=== PATIENT | female | born 1985 | race Caucasian/White ===

== ENCOUNTER 2017-05-18 23:51 | Inpatient (IN) | payer BC ==
[2017-05-19] MEDS ORDERED: Nalbuphine 10 MG/1 ML Vial IVPUSH PRN ×2 (00:01→21:52)
[2017-05-19] MEDS ORDERED: Sodium Chloride 0.9% 10 ML Syringe FLUSH PRN (00:01)
[2017-05-19] MEDS ORDERED: Tranexamic Acid 1,000 MG in Sodium Chloride 0.9% 100 ML IV PRN (00:01)
[2017-05-19] MEDS ORDERED: Carboprost Tromethamine 250 MCG/1 ML Amp IM PRN (00:01)
[2017-05-19] MEDS ORDERED: Lidocaine 1% 50 ML MDV INJECT PRN (00:01)
[2017-05-19] MEDS ORDERED: Sodium Chloride 0.9% 2.5 ML Syringe FLUSH PRN (00:01)
[2017-05-19] MEDS ORDERED: Water For Irrigation,Sterile 1,000 ML Container IRR PRN (00:01)
[2017-05-19] MEDS ORDERED: Methylergonovine 0.2 MG/1 ML Amp IM PRN (00:01)
[2017-05-19] MEDS ORDERED: Terbutaline 1 MG/ML SDV SUBCUT PRN (00:01)
[2017-05-19] MEDS ORDERED: Misoprostol 200 MCG Tab PO PRN (00:01)
[2017-05-19] MEDS ORDERED: hydrOXYzine Pamoate 25 MG Cap PO PRN (00:05)
[2017-05-19] MEDS ORDERED: Oxytocin/0.9 % Sodium Chloride 30 UNIT/500 ML BAG IV SCH ×2 (00:15→09:15)
[2017-05-19] MEDS ORDERED: Misoprostol 25 MCG (1/4 of 100 MCG) Tab VAG SCH (00:30)
[2017-05-19] MEDS ORDERED: Misoprostol 25 MCG (1/4 of 100 MCG) Tab PO SCH (00:30)
[2017-05-19] MEDS ORDERED: Misoprostol 25 MCG (1/4 of 100 MCG) Tab VAG PRN (04:30)
[2017-05-19] MEDS ORDERED: Misoprostol 25 MCG (1/4 of 100 MCG) Tab PO PRN (04:30)
--- NOTE | 2017-05-19 09:19 | PCM.LDHP ---
L&D History of Present Illness - General Date of Service: 05/19/17 Admit Problem/Dx: Patient Status Order with Admit Dx/Problem 05/19/17 00:01 Patient Status [ADT] Routine Admission Diagnosis/Problem Admission Diagnosis/Problem 05/19/17 09:19 31 yo EDC 05/26/2017 39 0/7wks O+, RI, GBS neg, IOL Source of Information: Patient History Limitations: Reports: No Limitations - History of Present Illness Improves with: Reports: None Worsens with: Reports: None Associated Symptoms: Reports: N - Related Data Allergies/Adverse Reactions: Allergies Allergy/AdvReac Type Severity Reaction Status Date / Time No Known Allergies Allergy Verified 05/19/17 00:01 Past Medical History - Past Health History Medical/Surgical History: Denies Medical/Surgical History Social & Family History - Family History Cardiac: Reports: Hypertension Endocrine/Metabolic: Reports: Diabetes, type II H&P Review of Systems - Review of Systems: Review Of Systems: See Below General: Reports: No Symptoms HEENT: Reports: No Symptoms Pulmonary: Reports: No Symptoms Cardiovascular: Reports: No Symptoms Gastrointestinal: Reports: No Symptoms Genitourinary: Reports: No Symptoms Musculoskeletal: Reports: No Symptoms Skin: Reports: No Symptoms Psychiatric: Reports: No Symptoms Neurological: Reports: No Symptoms Hematologic/Lymphatic: Reports: No Symptoms Immunologic: Reports: No Symptoms L&D Exam - Exam Exam: See Below - Vital Signs Weight: 125.645 kg - OB Specific Contraction Intensity: Mild Movement: Active Heart Tones: Present Heart Tones per Min: 140 Heart Rate (FHR) Variability: Moderate (6-25 bmp) Presentation: Vertex Estimated Weight: 3700 - German Score German Score Cervix Position: Anterior German Score Consistency: Soft German Score Effacement: 51-70% German Score Dilation: 3-4 cm German Score 's Station: -3 German Score Total: 8 - Exam General: Alert, Oriented, Cooperative HEENT: Hearing Intact Lungs: Clear to Auscultation, Normal Respiratory Effort Cardiovascular: Regular Rate, Regular Rhythm, Normal S1, Normal S2 GI/Abdominal Exam: Soft, Non-Tender Rectal Exam: Deferred Genitourinary: Normal external exam, Normal bimanual exam, Cervical dilitation Back Exam: Full Range of Motion Extremities: Normal Range of Motion, Non-Tender, No Pedal Edema, Normal Capillary Refill Skin: Warm, Dry, Intact Neurological: Reflexes Equal Bilateral, Normal Speech, Normal Tone Psychiatric: Alert, Normal Affect, Normal Mood - Patient Data Lab Results Last 24 hrs: Laboratory Results - last 24 hr 05/19/17 05/19/17 Range/Units 00:31 00:31 WBC 11.98 H (4.0-11.0) K/uL RBC 4.85 (4.30-5.90) M/uL Hgb 12.8 (12.0-16.0) g/dL Hct 38.8 (36.0-46.0) % MCV 80.0 (80.0-98.0) fL MCH 26.4 L (27.0-32.0) pg MCHC 33.0 (31.0-37.0) g/dL RDW Std Deviation 45.0 (28.0-62.0) fl RDW Coeff of Giana 16 H (11.0-15.0) % Plt Count 319 (150-400) K/uL MPV 10.20 (7.40-12.00) fL Nucleated RBC % 0.0 /100WBC Nucleated RBCs # 0 K/uL Blood Type O POSITIVE Antibody Screen NEGATIVE Result Diagrams: 05/19/17 00:31 - Problem List (1) Supervision of normal IUP (intrauterine ) in primigravida SNOMED Code(s): 60673520, 813845896, 473281789 ICD Code: Z34.00 - ENCNTR FOR SUPRVSN OF NORMAL FIRST , UNSP TRIMESTER Status: Acute Current Visit: Yes Qualifiers: Trimester: third trimester Qualified Code(s): Z34.03 - Encounter for supervision of normal first , third trimester Problem List Initiated/Reviewed/Updated: Yes Orders Last 24hrs: Active Orders 24 hr Category Date Time Status Patient Status [ADT] Routine ADT 05/19/17 00:01 Active Bedrest Bathroom Privileges [RC] ASDIRECTED Care 05/19/17 00:01 Active Communication Order [RC] ASDIRECTED Care 05/19/17 00:01 Active Communication Order [RC] ASDIRECTED Care 05/19/17 00:01 Active Communication Order [RC] ASDIRECTED Care 05/19/17 00:01 Active Heart Tones [RC] CONTINUOUS Care 05/19/17 00:01 Active Non Stress Test [RC] PER UNIT ROUTINE Care 05/19/17 00:01 Active May Shower [RC] ASDIRECTED Care 05/19/17 00:01 Active Notify Provider [RC] PRN Care 05/19/17 00:01 Active Notify Provider [RC] PRN Care 05/19/17 00:01 Active Notify Provider [RC] PRN Care 05/19/17 00:01 Active Notify Provider [RC] STAT Care 05/19/17 00:01 Active Oxygen Therapy [RC] ASDIRECTED Care 05/19/17 00:01 Active Up ad Mary [place] [RC] ASDIRECTED Care 05/19/17 00:01 Active Vaginal Exam [RC] PRN Care 05/19/17 00:01 Active Vaginal Exam [RC] PRN Care 05/19/17 00:01 Active Vital Signs [RC] PER UNIT ROUTINE Care 05/19/17 00:01 Active Vital Signs [RC] PER UNIT ROUTINE Care 05/19/17 00:01 Active Regular Diet [DIET] Diet 05/19/17 Breakfast Active Carboprost Tromethamine [Hemabate DS] Med 05/19/17 00:01 Active 250 mcg IM ASDIRECTED PRN Lactated Ringers [Ringers, Lactated] 1,000 ml Med 05/19/17 00:15 Active IV ASDIRECTED Lidocaine 1% [Xylocaine 1%] Med 05/19/17 00:01 Active 50 ml INJECT .ONCE PRN Methylergonovine [Methergine] Med 05/19/17 00:01 Active 0.2 mg IM ASDIRECTED PRN Misoprostol [Cytotec] Med 05/19/17 00:01 Active 200 mcg PO .ONCE PRN Misoprostol [Cytotec] Med 05/19/17 00:30 Active 25 mcg PO .ONCE Misoprostol [Cytotec] Med 05/19/17 04:30 Active 25 mcg PO Q4H PRN Misoprostol [Cytotec] Med 05/19/17 00:30 Active 25 mcg VAG .ONCE Misoprostol [Cytotec] Med 05/19/17 04:30 Active 25 mcg VAG Q4H PRN Nalbuphine [Nubain] Med 05/19/17 00:01 Active 10 mg IVPUSH Q1H PRN Oxytocin/0.9 % Sodium Chloride [Oxytocin 30 Unit/500 ML Med 05/19/17 00:15 Active -NS] 30 unit in 500 ml IV TITRATE Sodium Chloride 0.9% [Saline Flush] Med 05/19/17 00:01 Active 10 ml FLUSH ASDIRECTED PRN Sodium Chloride 0.9% [Saline Flush] Med 05/19/17 00:01 Active 2.5 ml FLUSH ASDIRECTED PRN Terbutaline [Brethine] Med 05/19/17 00:01 Active 0.25 mg SUBCUT ASDIRECTED PRN Tranexamic Acid [Cyklokapron] 1,000 mg Med 05/19/17 00:01 Active Sodium Chloride 0.9% [Normal Saline] 100 ml IV ONETIME Water For Irrigation,Sterile [Sterile Water for Med 05/19/17 00:01 Active Irrigation] 1,000 ml IRR ASDIRECTED PRN hydrOXYzine Pamoate [Vistaril] Med 05/19/17 00:05 Active 50 mg PO BEDTIME PRN Scalp Electrode [WOMSER] Per Unit Routine Oth 05/19/17 00:01 Ordered Medication Administration Instruction [OM.PC] Q3H Oth 05/19/17 00:15 Ordered Peripheral IV Insertion Adult [OM.PC] Routine Oth 05/19/17 00:01 Ordered Resuscitation Status Routine Resus Stat 05/19/17 00:01 Ordered Medication Orders Carboprost Tromethamine (Hemabate Ds) 250 mcg IM ASDIRECTED PRN PRN Reason: Post Hemorrhage Hydroxyzine Pamoate (Vistaril) 50 mg PO BEDTIME PRN PRN Reason: Sleep Lactated Ringer's (Ringers, Lactated) 1,000 mls @ 150 mls/hr IV ASDIRECTED FAITH Oxytocin/Sodium Chloride (Oxytocin 30 Unit/500 Ml-Ns) 30 unit in 500 mls @ 999 mls/hr IV TITRATE FAITH Tranexamic Acid 1,000 mg/ (Sodium Chloride) 110 mls @ 660 mls/hr IV ONETIME PRN PRN Reason: Bleeding Lidocaine HCl (Xylocaine 1%) 50 ml INJECT .ONCE PRN PRN Reason: Laceration repair Methylergonovine Maleate (Methergine) 0.2 mg IM ASDIRECTED PRN PRN Reason: Post Hemorrhage Misoprostol (Cytotec) 200 mcg PO .ONCE PRN PRN Reason: Post Hemorrhage Misoprostol (Cytotec) 25 mcg VAG .ONCE FAITH Last Admin: 05/19/17 00:36 Dose: 25 mcg Misoprostol (Cytotec) 25 mcg VAG Q4H PRN PRN Reason: Cervical Ripening Last Admin: 05/19/17 04:58 Dose: 25 mcg Misoprostol (Cytotec) 25 mcg PO Q4H PRN PRN Reason: Cervical Ripening Last Admin: 05/19/17 04:58 Dose: 25 mcg Misoprostol (Cytotec) 25 mcg PO .ONCE FAITH Last Admin: 05/19/17 00:37 Dose: 25 mcg Nalbuphine HCl (Nubain) 10 mg IVPUSH Q1H PRN PRN Reason: Pain (severe 7-10) Sodium Chloride (Saline Flush) 10 ml FLUSH ASDIRECTED PRN PRN Reason: Keep Vein Open Sodium Chloride (Saline Flush) 2.5 ml FLUSH ASDIRECTED PRN PRN Reason: Keep Vein Open Sterile Water (Sterile Water For Irrigation) 1,000 ml IRR ASDIRECTED PRN PRN Reason: delivery Terbutaline Sulfate (Brethine) 0.25 mg SUBCUT ASDIRECTED PRN PRN Reason: Tacysystole Assessment/Plan Comment:: IOL A: 31 yo EDC 05/26/2017 39 0/7wks O+, RI, GBS neg, IOL P: Admit, cytotec to pitocin induction, GBS neg. Anticipate . Dr Bergman updated
[2017-05-19] MEDS: Lactated Ringers 1,000 ML IV SCH ×4 (09:36→17:18)
--- NOTE | 2017-05-19 10:37 | PCM.PREANE ---
Preanesthetic Assessment - Procedure Proposed Procedure: Term labor; primiparous - Anesthesia/Transfusion/Family Hx Anesthesia History: No Prior Anesthesia Family History of Anesthesia Reaction: No - Review of Systems General: Other (in labor) Pulmonary: No Symptoms Cardiovascular: No Symptoms Gastrointestinal: Other (GERD of ) Neurological: No Symptoms Other: Reports: Anxiety - Physical Assessment NPO Status Date: 05/19/17 NPO Status Time: 06:00 Height: 5 ft 9 in Weight: 277 lb ASA Class: 2 Mental Status: Alert & Oriented x3 Airway Class: Mallampati = 2 Dentition: Reports: Normal Dentition Thyro-Mental Finger Breadths: 3 Mouth Opening Finger Breadths: 3 (narrow palate) ROM/Head Extension: Full Lungs: Clear to Auscultation, Normal Respiratory Effort Cardiovascular: Regular Rate, No Murmurs - Lab Values: Laboratory Last Values WBC 11.98 K/uL (4.0-11.0) H 05/19/17 00:31 RBC 4.85 M/uL (4.30-5.90) 05/19/17 00:31 Hgb 12.8 g/dL (12.0-16.0) 05/19/17 00:31 Hct 38.8 % (36.0-46.0) 05/19/17 00:31 MCV 80.0 fL (80.0-98.0) 05/19/17 00:31 MCH 26.4 pg (27.0-32.0) L 05/19/17 00:31 MCHC 33.0 g/dL (31.0-37.0) 05/19/17 00:31 RDW Std Deviation 45.0 fl (28.0-62.0) 05/19/17 00:31 RDW Coeff of Giana 16 % (11.0-15.0) H 05/19/17 00:31 Plt Count 319 K/uL (150-400) 05/19/17 00:31 MPV 10.20 fL (7.40-12.00) 05/19/17 00:31 Nucleated RBC % 0.0 /100WBC 05/19/17 00:31 Nucleated RBCs # 0 K/uL 05/19/17 00:31 Blood Type O POSITIVE 05/19/17 00:31 Antibody Screen NEGATIVE 05/19/17 00:31 - Allergies Allergies/Adverse Reactions: Allergies Allergy/AdvReac Type Severity Reaction Status Date / Time No Known Allergies Allergy Verified 05/19/17 00:01 - Blood Blood Available: No Product(s) Available: None (T and S) - Anesthesia Plan Pre-Op Medication Ordered: None - Acknowledgements Anesthesia Type Planned: Epidural Pt an Appropriate Candidate for the Planned Anesthesia: Yes Alternatives and Risks of Anesthesia Discussed w Pt/Guardian: Yes Pt/Guardian Understands and Agrees with Anesthesia Plan: Yes Additional Comments: present for placement and interview PreAnesthesia Questionnaire - Past Health History Medical/Surgical History: Denies Medical/Surgical History - CURRENT (IN HOUSE) MEDS Current Meds: Current Medications Carboprost Tromethamine (Hemabate Ds) 250 mcg IM ASDIRECTED PRN PRN Reason: Post Hemorrhage Hydroxyzine Pamoate (Vistaril) 50 mg PO BEDTIME PRN PRN Reason: Sleep Lactated Ringer's (Ringers, Lactated) 1,000 mls @ 150 mls/hr IV ASDIRECTED FAITH Last Admin: 05/19/17 09:36 Dose: 150 mls/hr Oxytocin/Sodium Chloride (Oxytocin 30 Unit/500 Ml-Ns) 30 unit in 500 mls @ 999 mls/hr IV TITRATE FAITH Tranexamic Acid 1,000 mg/ (Sodium Chloride) 110 mls @ 660 mls/hr IV ONETIME PRN PRN Reason: Bleeding Oxytocin/Sodium Chloride (Oxytocin 30 Unit/500 Ml-Ns) 30 unit in 500 mls @ 2 mls/hr IV TITRATE FAITH; 2 MUNITS/MIN PRN Reason: Protocol Last Titration: 05/19/17 10:03 Dose: 4 munits/min, 4 mls/hr Lidocaine HCl (Xylocaine 1%) 50 ml INJECT .ONCE PRN PRN Reason: Laceration repair Methylergonovine Maleate (Methergine) 0.2 mg IM ASDIRECTED PRN PRN Reason: Post Hemorrhage Misoprostol (Cytotec) 200 mcg PO .ONCE PRN PRN Reason: Post Hemorrhage Misoprostol (Cytotec) 25 mcg VAG .ONCE FAITH Last Admin: 05/19/17 00:36 Dose: 25 mcg Misoprostol (Cytotec) 25 mcg VAG Q4H PRN PRN Reason: Cervical Ripening Last Admin: 05/19/17 04:58 Dose: 25 mcg Misoprostol (Cytotec) 25 mcg PO Q4H PRN PRN Reason: Cervical Ripening Last Admin: 05/19/17 04:58 Dose: 25 mcg Misoprostol (Cytotec) 25 mcg PO .ONCE FAITH Last Admin: 05/19/17 00:37 Dose: 25 mcg Nalbuphine HCl (Nubain) 10 mg IVPUSH Q1H PRN PRN Reason: Pain (severe 7-10) Sodium Chloride (Saline Flush) 10 ml FLUSH ASDIRECTED PRN PRN Reason: Keep Vein Open Sodium Chloride (Saline Flush) 2.5 ml FLUSH ASDIRECTED PRN PRN Reason: Keep Vein Open Sterile Water (Sterile Water For Irrigation) 1,000 ml IRR ASDIRECTED PRN PRN Reason: delivery Terbutaline Sulfate (Brethine) 0.25 mg SUBCUT ASDIRECTED PRN PRN Reason: Tacysystole
[2017-05-19] MEDS ORDERED: fentaNYL 100 MCG/2 ML SDV ONE ×3 (12:46→21:15)
[2017-05-19] MEDS ORDERED: Bupivacaine 0.5% 10 ML SDV ONE (20:31)
[2017-05-19] MEDS ORDERED: ceFAZolin/Dextrose,Iso-Osmotic 2 GM/50 ML Duplex Bag IV ONE (20:31)
[2017-05-19] MEDS ORDERED: Ondansetron 4 MG/2 ML SDV ONE (20:46)
[2017-05-19] MEDS ORDERED: Morphine PF 1 MG/ML Amp ONE (20:46)
[2017-05-19] MEDS ORDERED: Oxytocin 10 Units/1 ML SDV ONE (20:52)
[2017-05-19] MEDS ORDERED: Propofol 200 MG/20 ML SDV ONE (20:59)
[2017-05-19] MEDS ORDERED: Midazolam 1 MG/ML 2 ML SDV ONE (20:59)
[2017-05-19] MEDS ORDERED: Octyl 2-Cyanoacrylate 1 Tube ONE (21:31)
[2017-05-19] MEDS ORDERED: diphenhydrAMINE 50 MG/ML SDV IVPUSH PRN ×2 (21:32→21:52)
[2017-05-19] MEDS ORDERED: Acetaminophen/oxyCODONE 325-5 MG Tab PO PRN ×2 (21:32)
[2017-05-19] MEDS ORDERED: Ondansetron 4 MG/2 ML SDV IVPUSH PRN (21:32)
[2017-05-19] MEDS ORDERED: Bisacodyl 10 MG Supp RECTAL PRN (21:32)
[2017-05-19] MEDS ORDERED: Lanolin 100% Cream 7 GM Tube TOP PRN (21:32)
--- NOTE | 2017-05-19 21:37 | PCM.OPNOTE ---
- General Post-Op/Procedure Note Date of Surgery/Procedure: 05/19/17 Operative Procedure(s): Primary IUP 39 weeks failure to progress Pre Op Diagnosis: IUP 39 weeks failure to progress Post-Op Diagnosis: Same Anesthesia Technique: Epidural Primary Surgeon: Jack Bergman Skin Lap Bonder: Sabrina Baptiste EBL in mLs: 700 Complications: None Condition: Good
[2017-05-19] MEDS ORDERED: Lactated Ringers 1,000 ML IV SCH (21:45)
[2017-05-19] MEDS ORDERED: Naloxone 0.4 MG/ML Syringe IVPUSH PRN (21:52)
--- NOTE | 2017-05-19 23:54 | PCM.POSTAN ---
POST ANESTHESIA ASSESSMENT - MENTAL STATUS Mental Status: Alert, Oriented - RESPIRATORY Respiratory Status: Respiratory Rate WNL, Airway Patent, O2 Saturation Stable - CARDIOVASCULAR CV Status: Pulse Rate WNL, Blood Pressure Stable - GASTROINTESTINAL GI Status: No Symptoms - PAIN Pain Score: 1 - POST OP HYDRATION Hydration Status: Adequate & Stable
[2017-05-20] MEDS: Ketorolac 30 MG/ML SDV IVPUSH SCH ×4 (00:19→20:00)
--- NOTE | 2017-05-20 02:07 | OR ---
SURGEON: Jack Bergman MD DATE OF PROCEDURE: 05/19/2017 PREOPERATIVE DIAGNOSES: Intrauterine 39 weeks plus, failed induction, failure to progress and non-reassuring heart rate. POSTOPERATIVE DIAGNOSES: Intrauterine 39 weeks plus, failed induction, failure to progress and non-reassuring heart rate. OPERATION PERFORMED: Primary low transverse section. DURALUMIN METALWORKER: Sabrina Baptiste CNM ANESTHESIA: Epidural, Akshat Heaton and Farhan Brown M.D. ESTIMATED BLOOD LOSS: 700 mL. THERMO PROCESSOR: Dr. Zelaya. COMPLICATIONS: None. INDICATION FOR SURGERY: This patient is a 31-year-old. She is primigravida. She is 39 plus weeks. She is followed in our clinic primarily by our nurse lacquer machine feeder. She is admitted for elective induction. The patient has initially responded to Cytotec and Pitocin. She progressed to 5 cm. She had artificial rupture of the membrane, and it was a meconium-tinged fluid. The patient started having repeat variable deceleration with a late component with every contraction, and when the Pitocin is stopped, these variable contractions are resolved. However, her contractions stopped. Reattempt to start the Pitocin, the same things happened. The patient is remote from delivery. A decision is done to do a primary low transverse section. PROCEDURE IN DETAIL: The patient was brought to the OR, properly identified. After adequate level of epidural anesthesia, the patient was prepped and draped in sterile fashion as usual. Low transverse Pfannenstiel skin incision done. Pérez fascia and rectus fascia were opened in direction of the incision. The 2 recti muscles were , and peritoneal cavity was entered. Bladder flap was raised in the usual manner pushing the bladder away from the lower uterine segment. Low transverse uterine incision extended manually, and fetus was in a vertex position, delivered without any problem, and handed to the certified wellness program coordinator who was present at the time of the section for resuscitation. The score reported to be 8 and 9. The weight was not available. The placenta delivered spontaneous, complete, and intact, and repair of the lower uterine segment was done with 2-0 Vicryl continuous interlocking in 2 layers. Reperitonealization done with 3-0 Vicryl continuous and then the peritoneal cavity evacuated completely from all blood and blood clot and closed with 3-0 Vicryl continuous. The rectus fascia was closed with #1 PDS double strand continuous. Pérez fascia was closed with 3-0 Vicryl continuous. The skin closed with 3-0 on a Talha needle in a subcuticular fashion. Prior to closing the superficial fascia, a Jg-Beard is placed in place and anchored to the skin with 3-0 Vicryl for drainage. Instrument and sponge count were correct. The patient tolerated the procedure well, went to recovery room in stable general condition. DAVID / SARAH /[id number]
--- NOTE | 2017-05-20 10:16 | PCM.SURGPN ---
- General Info Date of Service: 05/20/17 POD#: 1 Functional Status: Reports: Pain Controlled - Review of Systems General: Reports: No Symptoms HEENT: Reports: No Symptoms Pulmonary: Reports: No Symptoms Cardiovascular: Reports: No Symptoms Gastrointestinal: Reports: No Symptoms Genitourinary: Reports: No Symptoms Musculoskeletal: Reports: No Symptoms Skin: Reports: No Symptoms Neurological: Reports: No Symptoms Psychiatric: Reports: No Symptoms - Patient Data Vitals - Most Recent: Last Vital Signs Temp 36.4 C 05/20/17 04:00 Pulse 79 05/20/17 04:00 Resp 18 05/20/17 07:00 BP 111/76 05/20/17 04:00 Pulse Ox 94 L 05/20/17 07:00 Weight - Most Recent: 125.645 kg I&O - Last 24 Hours: Intake & Output 05/19/17 05/20/17 05/20/17 22:59 06:59 14:59 Intake Total 2000 Output Total 230 520 Balance 1770 -520 Lab Results Last 24 Hrs: Laboratory Results - last 24 hr 05/20/17 Range/Units 05:22 Hgb 11.0 L (12.0-16.0) g/dL Hct 33.8 L (36.0-46.0) % Med Orders - Current: Current Medications Bisacodyl (Dulcolax) 10 mg RECTAL .ONCE PRN PRN Reason: Constipation Carboprost Tromethamine (Hemabate Ds) 250 mcg IM ASDIRECTED PRN PRN Reason: Post Hemorrhage Diphenhydramine HCl (Benadryl) 25 mg IVPUSH Q6H PRN PRN Reason: Itching or Nausea Diphenhydramine HCl (Benadryl) 25 mg IVPUSH Q4H PRN PRN Reason: Itching Stop: 05/20/17 21:52 Docusate Sodium (Colace) 100 mg PO BID [facility] Emollient Ointment (Lansinoh Hpa) 0 gm TOP ASDIRECTED PRN PRN Reason: Sore Nipples Hydroxyzine Pamoate (Vistaril) 50 mg PO BEDTIME PRN PRN Reason: Sleep Lactated Ringer's (Ringers, Lactated) 1,000 mls @ 150 mls/hr IV ASDIRECTED [facility] Last Admin: 05/19/17 17:18 Dose: 150 mls/hr Oxytocin/Sodium Chloride (Oxytocin 30 Unit/500 Ml-Ns) 30 unit in 500 mls @ 999 mls/hr IV TITRATE [facility] Tranexamic Acid 1,000 mg/ (Sodium Chloride) 110 mls @ 660 mls/hr IV ONETIME PRN PRN Reason: Bleeding Oxytocin/Sodium Chloride (Oxytocin 30 Unit/500 Ml-Ns) 30 unit in 500 mls @ 2 mls/hr IV TITRATE [facility]; 2 MUNITS/MIN PRN Reason: Protocol Last Titration: 05/19/17 20:07 Dose: 0 munits/min, 0 mls/hr Lactated Ringer's (Ringers, Lactated) 1,000 mls @ 125 mls/hr IV ASDIRECTED [facility] Last Admin: 05/19/17 22:24 Dose: 125 mls/hr Ibuprofen (Motrin) 800 mg PO Q8H PRN PRN Reason: mild pain or fever Ketorolac Tromethamine (Toradol) 30 mg IVPUSH Q6H [facility] Stop: 05/21/17 00:01 Lidocaine HCl (Xylocaine 1%) 50 ml INJECT .ONCE PRN PRN Reason: Laceration repair Methylergonovine Maleate (Methergine) 0.2 mg IM ASDIRECTED PRN PRN Reason: Post Hemorrhage Misoprostol (Cytotec) 200 mcg PO .ONCE PRN PRN Reason: Post Hemorrhage Misoprostol (Cytotec) 25 mcg VAG .ONCE [facility] Last Admin: 05/19/17 00:36 Dose: 25 mcg Misoprostol (Cytotec) 25 mcg VAG Q4H PRN PRN Reason: Cervical Ripening Last Admin: 05/19/17 04:58 Dose: 25 mcg Misoprostol (Cytotec) 25 mcg PO Q4H PRN PRN Reason: Cervical Ripening Last Admin: 05/19/17 04:58 Dose: 25 mcg Misoprostol (Cytotec) 25 mcg PO .ONCE [facility] Last Admin: 05/19/17 00:37 Dose: 25 mcg Nalbuphine HCl (Nubain) 10 mg IVPUSH Q1H PRN PRN Reason: Pain (severe 7-10) Nalbuphine HCl (Nubain) 5 mg IVPUSH Q3H PRN PRN Reason: Pruritis Stop: 05/20/17 21:52 Naloxone HCl (Narcan) 0.1 mg IVPUSH ONETIME PRN PRN Reason: Respiratory Depression Stop: 05/20/17 21:53 Ondansetron HCl (Zofran) 4 mg IVPUSH Q4H PRN PRN Reason: Nausea/Vomiting Oxycodone/Acetaminophen (Percocet 325-5 Mg) 1 tab PO Q4H PRN PRN Reason: Pain (moderate 4-6) Oxycodone/Acetaminophen (Percocet 325-5 Mg) 2 tab PO Q4H PRN PRN Reason: Pain (moderate 4-6) Sodium Chloride (Saline Flush) 10 ml FLUSH ASDIRECTED PRN PRN Reason: Keep Vein Open Sodium Chloride (Saline Flush) 2.5 ml FLUSH ASDIRECTED PRN PRN Reason: Keep Vein Open Sterile Water (Sterile Water For Irrigation) 1,000 ml IRR ASDIRECTED PRN PRN Reason: delivery Terbutaline Sulfate (Brethine) 0.25 mg SUBCUT ASDIRECTED PRN PRN Reason: Tacysystole Discontinued Medications Bupivacaine HCl (Sensorcaine-Mpf 0.5%) Confirm Administered Dose 20 ml .ROUTE .STK-MED ONE Stop: 05/19/17 20:32 Cefazolin Sodium/Dextrose (Ancef) Confirm Administered Dose 2 gm IV .STK-MED ONE Stop: 05/19/17 20:32 Fentanyl (Sublimaze) Confirm Administered Dose 100 mcg .ROUTE .STK-MED ONE Stop: 05/19/17 12:47 Fentanyl (Sublimaze) Confirm Administered Dose 100 mcg .ROUTE .STK-MED ONE Stop: 05/19/17 21:00 Fentanyl (Sublimaze) Confirm Administered Dose 100 mcg .ROUTE .STK-MED ONE Stop: 05/19/17 21:16 Fentanyl/Bupivacaine HCl (Xbrukmjr-Drryd-Fg 2 Mcg/Ml-0.125%) Confirm Administered Dose 100 mls @ as directed EP .STK-MED ONE Stop: 05/19/17 11:18 Fentanyl/Bupivacaine HCl (Gmbfygrr-Upofw-Pd 2 Mcg/Ml-0.125%) Confirm Administered Dose 100 mls @ as directed EP .STK-MED ONE Stop: 05/19/17 17:59 Ketorolac Tromethamine (Toradol) 30 mg IVPUSH Q6H [facility] Stop: 05/20/17 22:01 Last Admin: 05/20/17 07:49 Dose: 30 mg Midazolam HCl (Versed 1 Mg/Ml) Confirm Administered Dose 2 mg .ROUTE .STK-MED ONE Stop: 05/19/17 21:00 Morphine Sulfate (Duramorph Pf) Confirm Administered Dose 1 mg .ROUTE .STK-MED ONE Stop: 05/19/17 20:47 Octyl Cyanoacrylate (Dermabond Advance) Confirm Administered Dose 1 applic .ROUTE .STK-MED ONE Stop: 05/19/17 21:32 Ondansetron HCl (Zofran) Confirm Administered Dose 4 mg .ROUTE .STK-MED ONE Stop: 05/19/17 20:47 Oxytocin (Pitocin) Confirm Administered Dose 20 unit .ROUTE .STK-MED ONE Stop: 05/19/17 20:53 Propofol (Diprivan 20 Ml) Confirm Administered Dose 200 mg .ROUTE .STK-MED ONE Stop: 05/19/17 21:00 - Exam Wound/Incisions: Healing Well General: Alert, Oriented HEENT: Pupils Equal Neck: Supple Lungs: Clear to Auscultation, Normal Respiratory Effort Cardiovascular: Regular Rate, Regular Rhythm GI/Abdominal Exam: Normal Bowel Sounds, Soft, Non-Tender, No Organomegaly, No Distention, No Abnormal Bruit, No Mass, Pelvis Stable Extremities: Normal Inspection, Normal Range of Motion, Non-Tender, No Pedal Edema, Normal Capillary Refill Skin: Warm, Dry, Intact Neurological: No New Focal Deficit Psy/Mental Status: Alert, Normal Affect, Normal Mood - Problem List Review Problem List Initiated/Reviewed/Updated: Yes - My Orders Last 24 Hours: Active Orders 24 hr Category Date Time Status Patient Status [ADT] Routine ADT 05/19/17 21:33 Active Ambulate [RC] PER UNIT ROUTINE Care 05/19/17 21:33 Active Antiembolic Devices [RC] PER UNIT ROUTINE Care 05/19/17 21:33 Active Bradycardia-Neuroaxis [employer] [RC] ROUTINE Care 05/19/17 21:52 Active Communication Order [RC] PER UNIT ROUTINE Care 05/19/17 21:33 Active Communication Order [RC] PER UNIT ROUTINE Care 05/19/17 21:33 Active Communication Order [RC] Per Unit Routine Care 05/19/17 21:33 Active Hypertension-Neuroaxis [employer] [RC] ROUTINE Care 05/19/17 21:52 Active Hypotension-Neuroaxis [employer] [RC] ROUTINE Care 05/19/17 21:52 Active May Shower [RC] ASDIRECTED Care 05/19/17 21:33 Active Oxygen Therapy [RC] PER UNIT ROUTINE Care 05/19/17 21:52 Active RT Incentive Spirometry [RC] Q2HWA Care 05/19/17 21:33 Active Vital Signs [RC] PER UNIT ROUTINE Care 05/19/17 21:33 Active Vital Signs [RC] Q1H Care 05/19/17 21:52 Active Acetaminophen/oxyCODONE [Percocet 325-5 MG] Med 05/19/17 21:32 Active 1 tab PO Q4H PRN Acetaminophen/oxyCODONE [Percocet 325-5 MG] Med 05/19/17 21:32 Active 2 tab PO Q4H PRN Bisacodyl [Dulcolax] Med 05/19/17 21:32 Active 10 mg RECTAL .ONCE PRN Docusate Sodium [Colace] Med 05/20/17 09:00 Active 100 mg PO BID Ibuprofen [Motrin] Med 05/21/17 06:00 Active 800 mg PO Q8H PRN Ketorolac [Toradol] Med 05/20/17 12:00 Active 30 mg IVPUSH Q6H Lactated Ringers [Ringers, Lactated] 1,000 ml Med 05/19/17 21:45 Active IV ASDIRECTED Lanolin [Lansinoh HPA] Med 05/19/17 21:32 Active See Dose Instructions TOP ASDIRECTED PRN Nalbuphine [Nubain] Med 05/19/17 21:52 Active 5 mg IVPUSH Q3H PRN Naloxone [Narcan] Med 05/19/17 21:52 Active 0.1 mg IVPUSH ONETIME PRN Ondansetron [Zofran] Med 05/19/17 21:32 Active 4 mg IVPUSH Q4H PRN diphenhydrAMINE [Benadryl] Med 05/19/17 21:52 Active 25 mg IVPUSH Q4H PRN diphenhydrAMINE [Benadryl] Med 05/19/17 21:32 Active 25 mg IVPUSH Q6H PRN AN Neuroaxis [employer] Precaution Reflex [OM.PC] PER Oth 05/19/17 22:00 Ordered UNIT ROUTINE AN Neuroaxis [employer] Precaution Reflex [OM.PC] PER Oth 05/20/17 22:00 Ordered UNIT ROUTINE Assess Lochia [WOMSER] Per Unit Routine Oth 05/19/17 21:33 Ordered Assess Uterine Involution [WOMSER] Per Unit Routine Oth 05/19/17 21:33 Ordered Breast Pump [WOMSER] Per Unit Routine Ot 05/19/17 21:33 Ordered Peripheral IV Discontinue [OM.PC] Routine Ot 05/19/17 21:33 Ordered Sequential Compression Device [OM.PC] Per Unit Routine Ot 05/19/17 21:33 Ordered Medication Orders Bisacodyl (Dulcolax) 10 mg RECTAL .ONCE PRN PRN Reason: Constipation Carboprost Tromethamine (Hemabate Ds) 250 mcg IM ASDIRECTED PRN PRN Reason: Post Hemorrhage Diphenhydramine HCl (Benadryl) 25 mg IVPUSH Q6H PRN PRN Reason: Itching or Nausea Diphenhydramine HCl (Benadryl) 25 mg IVPUSH Q4H PRN PRN Reason: Itching Stop: 05/20/17 21:52 Docusate Sodium (Colace) 100 mg PO BID [facility] Emollient Ointment (Lansinoh Hpa) 0 gm TOP ASDIRECTED PRN PRN Reason: Sore Nipples Hydroxyzine Pamoate (Vistaril) 50 mg PO BEDTIME PRN PRN Reason: Sleep Lactated Ringer's (Ringers, Lactated) 1,000 mls @ 150 mls/hr IV ASDIRECTED [facility] Last Admin: 05/19/17 17:18 Dose: 150 mls/hr Infusion: 05/19/17 17:18 Dose: 150 mls/hr Admin: 05/19/17 13:15 Dose: 150 mls/hr Infusion: 05/19/17 13:15 Dose: 150 mls/hr Admin: 05/19/17 11:10 Dose: 150 mls/hr Infusion: 05/19/17 11:10 Dose: 150 mls/hr Admin: 05/19/17 09:36 Dose: 150 mls/hr Oxytocin/Sodium Chloride (Oxytocin 30 Unit/500 Ml-Ns) 30 unit in 500 mls @ 999 mls/hr IV TITRATE [facility] Tranexamic Acid 1,000 mg/ (Sodium Chloride) 110 mls @ 660 mls/hr IV ONETIME PRN PRN Reason: Bleeding Oxytocin/Sodium Chloride (Oxytocin 30 Unit/500 Ml-Ns) 30 unit in 500 mls @ 2 mls/hr IV TITRATE [facility]; 2 MUNITS/MIN PRN Reason: Protocol Last Titration: 05/19/17 20:07 Dose: 0 munits/min, 0 mls/hr Titration: 05/19/17 19:33 Dose: 8 munits/min, 8 mls/hr Titration: 05/19/17 19:08 Dose: 6 munits/min, 6 mls/hr Titration: 05/19/17 18:26 Dose: 4 munits/min, 4 mls/hr Titration: 05/19/17 18:05 Dose: 2 munits/min, 2 mls/hr Titration: 05/19/17 17:16 Dose: 0 munits/min, 0 mls/hr Titration: 05/19/17 16:00 Dose: 8 munits/min, 8 mls/hr Titration: 05/19/17 11:17 Dose: 6 munits/min, 6 mls/hr Titration: 05/19/17 10:03 Dose: 4 munits/min, 4 mls/hr Admin: 05/19/17 09:35 Dose: 2 munits/min, 2 mls/hr Lactated Ringer's (Ringers, Lactated) 1,000 mls @ 125 mls/hr IV ASDIRECTED [facility] Last Admin: 05/19/17 22:24 Dose: 125 mls/hr Ibuprofen (Motrin) 800 mg PO Q8H PRN PRN Reason: mild pain or fever Ketorolac Tromethamine (Toradol) 30 mg IVPUSH Q6H [facility] Stop: 05/21/17 00:01 Lidocaine HCl (Xylocaine 1%) 50 ml INJECT .ONCE PRN PRN Reason: Laceration repair Methylergonovine Maleate (Methergine) 0.2 mg IM ASDIRECTED PRN PRN Reason: Post Hemorrhage Misoprostol (Cytotec) 200 mcg PO .ONCE PRN PRN Reason: Post Hemorrhage Misoprostol (Cytotec) 25 mcg VAG .ONCE [facility] Last Admin: 05/19/17 00:36 Dose: 25 mcg Misoprostol (Cytotec) 25 mcg VAG Q4H PRN PRN Reason: Cervical Ripening Last Admin: 05/19/17 04:58 Dose: 25 mcg Misoprostol (Cytotec) 25 mcg PO Q4H PRN PRN Reason: Cervical Ripening Last Admin: 05/19/17 04:58 Dose: 25 mcg Misoprostol (Cytotec) 25 mcg PO .ONCE [facility] Last Admin: 05/19/17 00:37 Dose: 25 mcg Nalbuphine HCl (Nubain) 10 mg IVPUSH Q1H PRN PRN Reason: Pain (severe 7-10) Nalbuphine HCl (Nubain) 5 mg IVPUSH Q3H PRN PRN Reason: Pruritis Stop: 05/20/17 21:52 Naloxone HCl (Narcan) 0.1 mg IVPUSH ONETIME PRN PRN Reason: Respiratory Depression Stop: 05/20/17 21:53 Ondansetron HCl (Zofran) 4 mg IVPUSH Q4H PRN PRN Reason: Nausea/Vomiting Oxycodone/Acetaminophen (Percocet 325-5 Mg) 1 tab PO Q4H PRN PRN Reason: Pain (moderate 4-6) Oxycodone/Acetaminophen (Percocet 325-5 Mg) 2 tab PO Q4H PRN PRN Reason: Pain (moderate 4-6) Sodium Chloride (Saline Flush) 10 ml FLUSH ASDIRECTED PRN PRN Reason: Keep Vein Open Sodium Chloride (Saline Flush) 2.5 ml FLUSH ASDIRECTED PRN PRN Reason: Keep Vein Open Sterile Water (Sterile Water For Irrigation) 1,000 ml IRR ASDIRECTED PRN PRN Reason: delivery Terbutaline Sulfate (Brethine) 0.25 mg SUBCUT ASDIRECTED PRN PRN Reason: Tacysystole - Assessment Assessment (Free Text/Narrative):: Status post section postoperative day #1 patient vitals signs stable incision is okay JVD drainage is moderate. Patient on regular diet - Plan Plan (Free Text/Narrative):: Regular and post section care
--- NOTE | 2017-05-20 11:31 | PCM48HPAN ---
Post Anesthesia Note - EVALUATION WITHIN 48HRS OF ANESTHETIC Vital Signs in Normal Range: Yes Patient Participated in Evaluation: Yes Respiratory Function Stable: Yes Airway Patent: Yes Cardiovascular Function Stable: Yes Hydration Status Stable: Yes Pain Control Satisfactory: Yes Nausea and Vomiting Control Satisfactory: Yes Mental Status Recovered: Yes Resp Rate: 18 - COMMENTS/OBSERVATIONS Free Text/Narrative:: Baby at bedside. Stable condition.
[2017-05-20] MEDS: Docusate Sodium 100 MG Cap PO SCH ×2 (11:40→20:00)
[2017-05-20] MEDS ORDERED: Acetaminophen/oxyCODONE 325-5 MG Tab PO PRN (17:31)
[2017-05-21] MEDS ORDERED: Ketorolac 30 MG/ML SDV ONE (02:24)
[2017-05-21] MEDS: Ketorolac 30 MG/ML SDV IVPUSH SCH (02:28)
[2017-05-21] MEDS ORDERED: Ibuprofen 800 MG Tab PO PRN (06:00)
[2017-05-21] MEDS: Docusate Sodium 100 MG Cap PO SCH ×2 (07:46→09:45)
--- NOTE | 2017-05-21 08:58 | PCM.PNPP ---
- General Info Date of Service: 05/21/17 Functional Status: Reports: Pain Controlled - Review of Systems General: Reports: No Symptoms HEENT: Reports: No Symptoms Pulmonary: Reports: No Symptoms Cardiovascular: Reports: No Symptoms Gastrointestinal: Reports: No Symptoms Genitourinary: Reports: No Symptoms Musculoskeletal: Reports: No Symptoms Skin: Reports: No Symptoms Neurological: Reports: No Symptoms Psychiatric: Reports: No Symptoms - General Info Date of Service: 05/21/17 - Patient Data Vital Signs - Most Recent: Last Vital Signs Temp 36.4 C 05/21/17 05:00 Pulse 100 05/21/17 05:00 Resp 18 05/21/17 05:00 BP 112/84 05/21/17 05:00 Pulse Ox 93 L 05/21/17 00:00 Weight - Most Recent: 125.645 kg I&O - Last 24 Hours: Intake & Output 05/20/17 05/21/17 05/21/17 22:59 06:59 14:59 Intake Total 500 Output Total 490 670 Balance -490 -170 Med Orders - Current: Current Medications Bisacodyl (Dulcolax) 10 mg RECTAL .ONCE PRN PRN Reason: Constipation Carboprost Tromethamine (Hemabate Ds) 250 mcg IM ASDIRECTED PRN PRN Reason: Post Hemorrhage Diphenhydramine HCl (Benadryl) 25 mg IVPUSH Q6H PRN PRN Reason: Itching or Nausea Docusate Sodium (Colace) 100 mg PO BID [facility] Last Admin: 05/21/17 07:46 Dose: 100 mg Emollient Ointment (Lansinoh Hpa) 0 gm TOP ASDIRECTED PRN PRN Reason: Sore Nipples Hydroxyzine Pamoate (Vistaril) 50 mg PO BEDTIME PRN PRN Reason: Sleep Lactated Ringer's (Ringers, Lactated) 1,000 mls @ 150 mls/hr IV ASDIRECTED [facility] Last Admin: 05/19/17 17:18 Dose: 150 mls/hr Oxytocin/Sodium Chloride (Oxytocin 30 Unit/500 Ml-Ns) 30 unit in 500 mls @ 999 mls/hr IV TITRATE [facility] Tranexamic Acid 1,000 mg/ (Sodium Chloride) 110 mls @ 660 mls/hr IV ONETIME PRN PRN Reason: Bleeding Oxytocin/Sodium Chloride (Oxytocin 30 Unit/500 Ml-Ns) 30 unit in 500 mls @ 2 mls/hr IV TITRATE [facility]ITH; 2 MUNITS/MIN PRN Reason: Protocol Last Titration: 05/19/17 20:07 Dose: 0 munits/min, 0 mls/hr Lactated Ringer's (Ringers, Lactated) 1,000 mls @ 125 mls/hr IV ASDIRECTED [facility] Last Admin: 05/19/17 22:24 Dose: 125 mls/hr Ibuprofen (Motrin) 800 mg PO Q8H PRN PRN Reason: mild pain or fever Last Admin: 05/21/17 08:54 Dose: 800 mg Lidocaine HCl (Xylocaine 1%) 50 ml INJECT .ONCE PRN PRN Reason: Laceration repair Methylergonovine Maleate (Methergine) 0.2 mg IM ASDIRECTED PRN PRN Reason: Post Hemorrhage Misoprostol (Cytotec) 200 mcg PO .ONCE PRN PRN Reason: Post Hemorrhage Misoprostol (Cytotec) 25 mcg VAG .ONCE [facility] Last Admin: 05/19/17 00:36 Dose: 25 mcg Misoprostol (Cytotec) 25 mcg VAG Q4H PRN PRN Reason: Cervical Ripening Last Admin: 05/19/17 04:58 Dose: 25 mcg Misoprostol (Cytotec) 25 mcg PO Q4H PRN PRN Reason: Cervical Ripening Last Admin: 05/19/17 04:58 Dose: 25 mcg Misoprostol (Cytotec) 25 mcg PO .ONCE [facility] Last Admin: 05/19/17 00:37 Dose: 25 mcg Nalbuphine HCl (Nubain) 10 mg IVPUSH Q1H PRN PRN Reason: Pain (severe 7-10) Ondansetron HCl (Zofran) 4 mg IVPUSH Q4H PRN PRN Reason: Nausea/Vomiting Oxycodone/Acetaminophen (Percocet 325-5 Mg) 1 tab PO Q4H PRN PRN Reason: Pain (moderate 4-6) Last Admin: 05/21/17 07:45 Dose: 1 tab Oxycodone/Acetaminophen (Percocet 325-5 Mg) 2 tab PO Q4H PRN PRN Reason: Pain (moderate 4-6) Oxycodone/Acetaminophen (Percocet 325-5 Mg) 1 tab PO Q4H PRN PRN Reason: Breakthrough Pain Last Admin: 05/20/17 17:58 Dose: 1 tab Sodium Chloride (Saline Flush) 10 ml FLUSH ASDIRECTED PRN PRN Reason: Keep Vein Open Sodium Chloride (Saline Flush) 2.5 ml FLUSH ASDIRECTED PRN PRN Reason: Keep Vein Open Sterile Water (Sterile Water For Irrigation) 1,000 ml IRR ASDIRECTED PRN PRN Reason: delivery Terbutaline Sulfate (Brethine) 0.25 mg SUBCUT ASDIRECTED PRN PRN Reason: Tacysystole Discontinued Medications Bupivacaine HCl (Sensorcaine-Mpf 0.5%) Confirm Administered Dose 20 ml .ROUTE .STK-MED ONE Stop: 05/19/17 20:32 Last Admin: 05/20/17 11:28 Dose: Not Given Cefazolin Sodium/Dextrose (Ancef) Confirm Administered Dose 2 gm IV .STK-MED ONE Stop: 05/19/17 20:32 Last Admin: 05/20/17 11:28 Dose: Not Given Diphenhydramine HCl (Benadryl) 25 mg IVPUSH Q4H PRN PRN Reason: Itching Stop: 05/20/17 21:52 Fentanyl (Sublimaze) Confirm Administered Dose 100 mcg .ROUTE .STK-MED ONE Stop: 05/19/17 12:47 Last Admin: 05/20/17 11:28 Dose: Not Given Fentanyl (Sublimaze) Confirm Administered Dose 100 mcg .ROUTE .STK-MED ONE Stop: 05/19/17 21:00 Fentanyl (Sublimaze) Confirm Administered Dose 100 mcg .ROUTE .STK-MED ONE Stop: 05/19/17 21:16 Fentanyl/Bupivacaine HCl (Tlpxhhza-Llqdh-Um 2 Mcg/Ml-0.125%) Confirm Administered Dose 100 mls @ as directed EP .STK-MED ONE Stop: 05/19/17 11:18 Last Admin: 05/20/17 11:28 Dose: Not Given Fentanyl/Bupivacaine HCl (Vicygsif-Hwngb-Yx 2 Mcg/Ml-0.125%) Confirm Administered Dose 100 mls @ as directed EP .STK-MED ONE Stop: 05/19/17 17:59 Last Admin: 05/20/17 11:28 Dose: Not Given Ketorolac Tromethamine (Toradol) 30 mg IVPUSH Q6H [facility] Stop: 05/20/17 22:01 Last Admin: 05/20/17 07:49 Dose: 30 mg Ketorolac Tromethamine (Toradol) 30 mg IVPUSH Q6H [facility] Stop: 05/21/17 00:01 Last Admin: 05/21/17 02:28 Dose: 30 mg Ketorolac Tromethamine (Toradol) Confirm Administered Dose 30 mg .ROUTE .STK- MED ONE Stop: 05/21/17 02:25 Last Admin: 05/21/17 02:30 Dose: Not Given Midazolam HCl (Versed 1 Mg/Ml) Confirm Administered Dose 2 mg .ROUTE .STK-MED ONE Stop: 05/19/17 21:00 Morphine Sulfate (Duramorph Pf) Confirm Administered Dose 1 mg .ROUTE .STK-MED ONE Stop: 05/19/17 20:47 Nalbuphine HCl (Nubain) 5 mg IVPUSH Q3H PRN PRN Reason: Pruritis Stop: 05/20/17 21:52 Naloxone HCl (Narcan) 0.1 mg IVPUSH ONETIME PRN PRN Reason: Respiratory Depression Stop: 05/20/17 21:53 Octyl Cyanoacrylate (Dermabond Advance) Confirm Administered Dose 1 applic .ROUTE .STK-MED ONE Stop: 05/19/17 21:32 Ondansetron HCl (Zofran) Confirm Administered Dose 4 mg .ROUTE .STK-MED ONE Stop: 05/19/17 20:47 Oxytocin (Pitocin) Confirm Administered Dose 20 unit .ROUTE .STK-MED ONE Stop: 05/19/17 20:53 Propofol (Diprivan 20 Ml) Confirm Administered Dose 200 mg .ROUTE .STK-MED ONE Stop: 05/19/17 21:00 - Interaction Disposition, : [place] in Room with Family Interaction: Holding Infant Feeding: Attempted ; Nursed Fair/Poor Support Person: , Mother - Recovery Exam Fundal Tone: Firm Fundal Level: 1 Fingerbreadths Below Umbilicus Fundal Placement: Midline Lochia Amount: Scant Lochia Color: Rubra/Red Perineum Description: Intact, Minimal Bruising/Swelling Episiotomy/Laceration: None Bladder Status: Voiding Urinary Elimination: Voided - Exam General: Alert, Oriented HEENT: Pupils Equal Neck: Supple Lungs: Clear to Auscultation, Normal Respiratory Effort Cardiovascular: Regular Rate, Regular Rhythm GI/Abdominal Exam: Normal Bowel Sounds, Soft, Non-Tender, No Organomegaly, No Distention, No Abnormal Bruit, No Mass, Pelvis Stable Extremities: Normal Inspection, Normal Range of Motion, Non-Tender, No Pedal Edema, Normal Capillary Refill Skin: Warm, Dry, Intact Wound/Incisions: Healing Well Neurological: No New Focal Deficit Psy/Mental Status: Alert, Normal Affect, Normal Mood - Problem List Review Problem List Initiated/Reviewed/Updated: Yes - My Orders Last 24 Hours: My Active Orders 05/20/17 09:00 Docusate Sodium [Colace] 100 mg PO BID 05/21/17 06:00 Ibuprofen [Motrin] 800 mg PO Q8H PRN - Assessment Assessment:: section postoperative day #1 patient is doing well incision is clean dry I am sending her home today with their regular for section instruction in a prescription for Percocet 7.5/325 for postoperative pain the patient is to come see Sabrina Baptiste in the office next Friday for removal of her Jg-Beard drain - Plan Plan:: IOL A: 31 yo EDC 05/26/2017 39 0/7wks O+, RI, GBS neg, IOL P: Admit, cytotec to pitocin induction, GBS neg. Anticipate . Dr Bergman updated
== END 2017-05-21 12:00 | disposition home or self-care (01) | DRG 540 ==
LOC: MW.OBCHECK 23:51 → MW.OB 23:52 → MW.OBCHECK 05-19 00:01 → MW.OB 05-19 21:08 → OBSVTOIN 05-19 21:12
PROVIDERS: ADMIT Obstetrics & Gynecology; ATTEND Obstetrics & Gynecology
PROC: 10D00Z1 Extraction of Products of Conception, Low, Open Approach (ICD-10-PCS; principal; 2017-05-19)
PROC: 10907ZC Drainage of Amniotic Fluid, Therapeutic from Products of Conception, Via Natural or Artificial Opening (ICD-10-PCS; 2017-05-19)
PROC: 3E0P7VZ Introduction of Hormone into Female Reproductive, Via Natural or Artificial Opening (ICD-10-PCS; 2017-05-19)
PROC: 3E033VJ Introduction of Other Hormone into Peripheral Vein, Percutaneous Approach (ICD-10-PCS; 2017-05-19)
DX: O76 Abnormality in fetal heart rate and rhythm complicating labor and delivery (principal); O61.0 Failed medical induction of labor; O32.4XX0 Maternal care for high head at term, not applicable or unspecified; Z3A.39 39 weeks gestation of pregnancy; Z37.0 Single live birth
CPT/HCPCS: 01967; 01968; 36415; 51702; 59025; 85014; 85018; 85027; 86850; 86900; 86901; A9270-GY; J0690; J1885; J2250; J2274; J2405; J2590; J2704; J3010; J7120